=== PATIENT | male | born 1940 | race African-American/Black ===

== ENCOUNTER 2019-01-24 18:29 | Inpatient (IN) | payer OTHER, BC ==
[~2019-01-24] VITALS: Ht 177.8 cm; Wt 91.4 kg
[2019-01-24 18:56] VITALS: Ht 177.8 cm; Wt 91.4 kg
[2019-01-24 20:11] LABS: CALCIUM 9.4 mg/dL (8.5-10.1); CARBON DIOXIDE 25.5 mmol/L (21-32); CHLORIDE SERUM 107 mmol/L (98-107); CREATININE SERUM 1.9 mg/dL (0.7-1.3); GLUCOSE SERUM 164 mg/dL (74-106); POTASSIUM SERUM 4.2 mmol/L (3.5-5.1); SODIUM SERUM 143 mmol/L (136-145)
[2019-01-24 20:14] LABS: BASOPHIL % 0.2 % (0-2); PLATELET COUNT 158 x10^3mcL (130-400)
[2019-01-24 20:17] LABS: ALBUMIN 3.7 g/dL (3.4-5.0); ALKALINE PHOSPHATASE 90 U/L (46-116); ALT/SGPT 25 U/L (16-63); AST/SGOT 17 U/L (15-37); BILIRUBIN TOTAL 0.4 mg/dL (0.20-1.00); TOTAL PROTEIN, SERUM 6.7 g/dL (6.4-8.2)
[2019-01-24 20:53] LABS: microscopic required? YES; urine erythrocyte 1+ (NEGATIVE)
[2019-01-24] MEDS ORDERED: AVAPRO300 MG PO (23:35)
[2019-01-24] MEDS ORDERED: LIPI20 PO (23:35)
[2019-01-24] MEDS ORDERED: GLUCOTROL5 MG PO (23:35)
[2019-01-24] MEDS ORDERED: ONGLYZA2.5 MG PO (23:35)
[2019-01-24] MEDS ORDERED: METOPROLOL SUCC50 M2 PO (23:36)
[2019-01-24] MEDS ORDERED: GLU500 PO (23:36)
[2019-01-24] MEDS ORDERED: NOR5 PO (23:36)
[2019-01-24] MEDS ORDERED: ZETIA10 M1 PO (23:36)
[2019-01-24] MEDS ORDERED: NAMENDA10 M2 PO (23:37)
[2019-01-25] VITALS (7 sets, daily range): BP systolic 105–187; BP diastolic 65–95
[2019-01-25 00:36] LABS: T3 TOTAL 1.14 ng/mL
[2019-01-25 01:05] LABS: CHOLESTEROL/HDL RATIO 3.2; FREE T4 1.08 ng/dL (0.76-1.46); T4(THYROXINE) 8.7 ug/dL (4.7-13.3)
[2019-01-25 02:47] LABS: AMPHETAMINE QUAL UR NONE DETECTED (See below)
[2019-01-25 12:11] LABS: BASOPHIL % 0.5 % (0-2); PLATELET COUNT 148 x10^3mcL (130-400); RED CELL DISTRIBUTION WIDTH 13.5 % (11.5-14.5)
[2019-01-25 12:12] LABS: CALCIUM 9.3 mg/dL (8.5-10.1); CARBON DIOXIDE 27.6 mmol/L (21-32); CHLORIDE SERUM 106 mmol/L (98-107); CREATININE SERUM 1.8 mg/dL (0.7-1.3); GLUCOSE SERUM 272 mg/dL (74-106); SODIUM SERUM 140 mmol/L (136-145)
[2019-01-26] VITALS (8 sets, daily range): BP systolic 158–206; BP diastolic 93–117
[2019-01-26 07:55] LABS: BASOPHIL % 0.3 % (0-2); PLATELET COUNT 163 x10^3mcL (130-400); RED CELL DISTRIBUTION WIDTH 13.8 % (11.5-14.5)
[2019-01-26 08:18] LABS: CALCIUM 9.8 mg/dL (8.5-10.1); CARBON DIOXIDE 23.9 mmol/L (21-32); CHLORIDE SERUM 103 mmol/L (98-107); CREATININE SERUM 1.5 mg/dL (0.7-1.3); GLUCOSE SERUM 200 mg/dL (74-106); POTASSIUM SERUM 4.1 mmol/L (3.5-5.1); SODIUM SERUM 140 mmol/L (136-145)
[2019-01-27 06:14] VITALS: BP 179/102
[2019-01-27 06:46] VITALS: BP 148/88
[2019-01-27 07:12] LABS: BASOPHIL % 0.3 % (0-2); PLATELET COUNT 162 x10^3mcL (130-400); RED CELL DISTRIBUTION WIDTH 13.8 % (11.5-14.5)
[2019-01-27 07:31] LABS: CALCIUM 9.6 mg/dL (8.5-10.1); CARBON DIOXIDE 25.4 mmol/L (21-32); CHLORIDE SERUM 104 mmol/L (98-107); CREATININE SERUM 1.5 mg/dL (0.7-1.3); GLUCOSE SERUM 171 mg/dL (74-106); POTASSIUM SERUM 3.9 mmol/L (3.5-5.1); SODIUM SERUM 140 mmol/L (136-145)
[2019-01-27 08:31] VITALS: BP 177/95
[2019-01-27 10:45] VITALS: BP 157/80
[2019-01-27 13:00] VITALS: BP 157/80
[2019-01-27 17:30] VITALS: BP 101/65
== END 2019-01-27 20:30 | DRG 640 ==
LOC: ED 18:29 → DU 23:11
PROVIDERS: Emergency Medicine; ADMIT Internal Medicine
DX: E86.0 Dehydration (principal); N17.0 Acute kidney failure with tubular necrosis; I48.0 Paroxysmal atrial fibrillation; G30.9 Alzheimer's disease, unspecified; F02.80 Dementia in other diseases classified elsewhere, unspecified severity, without behavioral disturbance, psychotic disturbance, mood disturbance, and anxiety; I10 Essential (primary) hypertension; E11.65 Type 2 diabetes mellitus with hyperglycemia; E78.5 Hyperlipidemia, unspecified; Z91.81 History of falling
CPT/HCPCS: 82962; 83880; 84439; G0378; G0480; J0360; J2060; J2765; J7030; Q0092